=== PATIENT | female | born 1945 | race Caucasian/White ===

== ENCOUNTER 2017-03-17 06:45 | Emergency (ER) | payer SELFPAY ==
[~2017-03-17] VITALS: Ht 152.4 cm; Wt 46.2 kg
[2017-03-17 06:49] VITALS: BP 153/95
== END 2017-03-17 07:12 | disposition left against medical advice (07) ==
LOC: ED 07:06
DX: Z04.8 Encounter for examination and observation for other specified reasons (principal); Z53.21 Procedure and treatment not carried out due to patient leaving prior to being seen by health care provider